=== PATIENT | male | born 1985 | race Caucasian/White ===

== ENCOUNTER 2018-02-09 17:52 | Emergency (ER) | payer MEDICAID ==
[~2018-02-09] VITALS: Ht 175.3 cm; Wt 93.0 kg
[2018-02-09 18:06] VITALS: Ht 175.3 cm; Wt 93.0 kg
[2018-02-09 19:12] VITALS: BP 118/77
== END 2018-02-09 19:29 | disposition home or self-care (01) ==
LOC: ED 17:52
DX: S93.402A Sprain of unspecified ligament of left ankle, initial encounter (principal); X50.1XXA Overexertion from prolonged static or awkward postures, initial encounter; Y93.89 Activity, other specified; Y92.89 Other specified places as the place of occurrence of the external cause; Y99.8 Other external cause status
CPT/HCPCS: Q0092

== ENCOUNTER 2018-02-17 18:18 | Emergency (ER) | payer MEDICAID ==
[~2018-02-17] VITALS: Ht 175.3 cm; Wt 90.7 kg
[2018-02-17 18:34] VITALS: Ht 175.3 cm; Wt 90.7 kg
== END 2018-02-17 20:19 | disposition home or self-care (01) ==
LOC: ED 18:18
DX: S93.402A Sprain of unspecified ligament of left ankle, initial encounter (principal); W11.XXXA Fall on and from ladder, initial encounter; Y93.89 Activity, other specified; Y92.89 Other specified places as the place of occurrence of the external cause; Y99.8 Other external cause status
CPT/HCPCS: Q0092